=== PATIENT | female | born 1945 | race Caucasian/White ===

== ENCOUNTER 2016-08-17 17:04 | Inpatient (IN) | payer MEDICARE ==
[2016-08-17] MEDS ORDERED: NS 0.9% 1000 ML* 1,000 ML IV ONE (18:22)
--- NOTE | 2016-08-17 18:41 | RAD ---
INDICATION: Dizziness. COMPARISON: There are no prior studies available for comparison. TECHNIQUE: A portable view of the chest was obtained. FINDINGS: Cardiac and mediastinal contours appear to be within normal limits. The lungs are clear. No pleural effusion is seen. IMPRESSION: NO EVIDENCE FOR ACUTE DISEASE.
[2016-08-17 18:47] LABS: Hematocrit 43 % (35-47); Hemoglobin 14.5 g/dl (12.0-16.0); Mean Corpuscular HGB Conc 34 g/dl (31-36); Mean Corpuscular Hemoglobin 32 pg (27-31); Mean Corpuscular Volume 93 fL (80-97); Mean Platelet Volume 10 um3 (7.4-10.4); Red Blood Count 4.62 10^6/ul (4.0-5.4); Red Cell Distribution Width 14 % (10.5-15); White Blood Count 8.2 10^3/ul (3.5-10.8)
[2016-08-17 19:06] LABS: Albumin 3.8 g/dL (3.2-5.2); BUN/Creatinine Ratio 15.9 (8-20); Calcium 9.8 mg/dL (8.6-10.3); EGFR African American 88.6 (>60); EGFR Non-African American 68.9 (>60); Globulin 2.8 g/dL (2-4); Magnesium 1.9 mg/dL (1.9-2.7); Potassium 3.8 mmol/L (3.5-5.0); Total Bilirubin 0.6 mg/dL (0.2-1.0); Total Protein 6.6 g/dL (6.4-8.9)
[2016-08-17 19:10] LABS: Troponin I 0.05 ng/mL (<0.04)
--- NOTE | 2016-08-17 19:25 | ED ---
I, DoctorRenee, scribed for Rosalina Feliciano MD on 08/17/16 at 1837 . Dizziness - HPI Summary HPI Summary: 71 year old female arrived to [facility] c/o dizziness beginning this afternoon. She reports that this afternoon, she was unable to sit down and has had periodic waves of intermittent dizziness since. Pt describes the dizziness as feelings of lightheadedness and "like she was passing out," with no queasiness or spinning. She also indicates that during her episodes of dizziness, she feels heat/discomfort throughout her back/shoulders that resolves spontaneously. She denies any SOB or CP. She reports some cramping in the back of the left leg; does not have PMHx of blood clots (although she returned from a long trip to [place] 2 weeks ago). She had a similar episode of dizziness around 2.5 weeks earlier, and was admitted to the hospital for 2 days. She has a PMHx of hypothyroidism and migraines; no PMHx of DM, CAD, HTN. She lives with her and does not smoke; her PCP is Dr. Barbara Mart. - History Of Current Complaint Chief Complaint: EDDizziness Stated Complaint: DIZZY Time Seen by Provider: 08/17/16 18:21 Hx Obtained From: Patient Timing: Intermittent Episode Lasting Severity Initially: Moderate Severity Currently: Moderate Character: Lightheaded, Dizzy Alleviating Factor(s): Lying Down Associated Signs And Symptoms: Negative: Chest Pain, SOB - Allergies/Home Medications Allergies/Adverse Reactions: Allergies Allergy/AdvReac Type Severity Reaction Status Date / Time Codeine Allergy Severe Nausea Verified 09/17/12 13:04 Hydrocortisone Allergy Severe Rash Verified 09/17/12 13:04 [From Neomycin Sulfate/Hydrocortisone Connor] Neomycin Allergy Severe Rash Verified 09/17/12 13:04 [From Neomycin Sulfate/Hydrocortisone Connor] Sulfa Drugs Allergy Severe Hives Verified 09/17/12 13:04 PMH/Surg Hx/FS Hx/Imm Hx Endocrine/Hematology History: Reports: Hx Thyroid Disease Denies: Hx Diabetes Cardiovascular History: Denies: Hx Hypertension - Surgical History Surgery Procedure, Year, and Place: Appendectomy. Tonsilectomy. Oral Surgery age 36 Infectious Disease History: Denies: Traveled Outside the [place] in Last 30 Days - Family History Known Family History: Positive: Diabetes - Social History Lives: With Family - with Alcohol Use: Occasionally Substance Use Type: Reports: None Smoking Status (MU): Never Smoked Tobacco Review of Systems Negative: Fever Negative: Chest Pain Negative: Shortness Of Breath Negative: Nausea Positive: Myalgia - left calf cramping, Other - "heat" on back and shoulders Neurological: Other - dizziness & lightheadedness All Other Systems Reviewed And Are Negative: Yes Physical Exam Triage Information Reviewed: Yes Vital Signs On Initial Exam: Initial Vitals Temp Pulse Resp BP Pulse Ox 98.0 F 107 18 162/75 100 08/17/16 17:14 08/17/16 17:14 08/17/16 17:14 08/17/16 17:14 08/17/16 17:14 Vital Signs Reviewed: Yes Appearance: Positive: Well-Appearing, No Pain Distress Skin: Positive: Warm, Skin Color Reflects Adequate Perfusion, Dry Eyes: Positive: EOMI, DESTINY ENT: Positive: Pharynx normal, TMs normal Neck: Positive: Supple, Nontender Respiratory/Lung Sounds: Positive: Clear to Auscultation, Breath Sounds Present. Negative: Rales, Rhonchi, Wheezes Cardiovascular: Positive: RRR. Negative: Murmur, Rub Abdomen Description: Positive: Nontender, Soft. Negative: Distended, Guarding Bowel Sounds: Positive: Present Musculoskeletal: Positive: Strength/ROM Intact. Negative: Edema Left, Edema Right Neurological: Positive: Sensory/Motor Intact, Alert, Oriented to Person Place, Time, CN Intact II-III Psychiatric: Positive: Affect/Mood Appropriate Diagnostics - Vital Signs Vital Signs Temp Pulse Resp BP Pulse Ox 08/17/16 17:14 98.0 F 107 18 162/75 100 - Laboratory Lab Results: Lab Results 08/17/16 08/17/16 08/17/16 Range/Units 18:40 18:40 18:40 WBC 8.2 (3.5-10.8) 10^3/ul RBC 4.62 (4.0-5.4) 10^6/ul Hgb 14.5 (12.0-16.0) g/dl Hct 43 (35-47) % MCV 93 (80-97) fL MCH 32 H (27-31) pg MCHC 34 (31-36) g/dl RDW 14 (10.5-15) % Plt Count 175 (150-450) 10^3/ul MPV 10 (7.4-10.4) um3 Neut % (Auto) 59.3 (38-83) % Lymph % (Auto) 29.3 (25-47) % [place] % (Auto) 7.2 (1-9) % Eos % (Auto) 3.3 (0-6) % Baso % (Auto) 0.9 (0-2) % Absolute Neuts (auto) 4.9 (1.5-7.7) 10^3/ul Absolute Lymphs (auto) 2.4 (1.0-4.8) 10^3/ul Absolute Monos (auto) 0.6 (0-0.8) 10^3/ul Absolute Eos (auto) 0.3 (0-0.6) 10^3/ul Absolute Basos (auto) 0.1 (0-0.2) 10^3/ul Absolute Nucleated RBC 0 10^3/ul Nucleated RBC % 0 D-Dimer, Quantitative (Less Than 230) ng/mL Sodium 140 (133-145) mmol/L Potassium 3.8 (3.5-5.0) mmol/L Chloride 106 (101-111) mmol/L Carbon Dioxide 28 (22-32) mmol/L Anion Gap 6 (2-11) mmol/L BUN 13 (6-24) mg/dL Creatinine 0.82 (0.51-0.95) mg/dL Est GFR ( Amer) 88.6 (>60) Est GFR (Non-Af Amer) 68.9 (>60) BUN/Creatinine Ratio 15.9 (8-20) Glucose 91 (70-100) mg/dL Lactic Acid 1.1 (0.5-2.0) mmol/L Calcium 9.8 (8.6-10.3) mg/dL Magnesium 1.9 (1.9-2.7) mg/dL Total Bilirubin 0.60 (0.2-1.0) mg/dL AST 24 (13-39) U/L ALT 17 (7-52) U/L Alkaline Phosphatase 66 (34-104) U/L Troponin I 0.05 H* (<0.04) ng/mL Total Protein 6.6 (6.4-8.9) g/dL Albumin 3.8 (3.2-5.2) g/dL Globulin 2.8 (2-4) g/dL Albumin/Globulin Ratio 1.4 (1-3) TSH Pending 08/17/16 Range/Units 18:40 WBC (3.5-10.8) 10^3/ul RBC (4.0-5.4) 10^6/ul Hgb (12.0-16.0) g/dl Hct (35-47) % MCV (80-97) fL MCH (27-31) pg MCHC (31-36) g/dl RDW (10.5-15) % Plt Count (150-450) 10^3/ul MPV (7.4-10.4) um3 Neut % (Auto) (38-83) % Lymph % (Auto) (25-47) % [place] % (Auto) (1-9) % Eos % (Auto) (0-6) % Baso % (Auto) (0-2) % Absolute Neuts (auto) (1.5-7.7) 10^3/ul Absolute Lymphs (auto) (1.0-4.8) 10^3/ul Absolute Monos (auto) (0-0.8) 10^3/ul Absolute Eos (auto) (0-0.6) 10^3/ul Absolute Basos (auto) (0-0.2) 10^3/ul Absolute Nucleated RBC 10^3/ul Nucleated RBC % D-Dimer, Quantitative < 200 (Less Than 230) ng/mL Sodium (133-145) mmol/L Potassium (3.5-5.0) mmol/L Chloride (101-111) mmol/L Carbon Dioxide (22-32) mmol/L Anion Gap (2-11) mmol/L BUN (6-24) mg/dL Creatinine (0.51-0.95) mg/dL Est GFR ( Amer) (>60) Est GFR (Non-Af Amer) (>60) BUN/Creatinine Ratio (8-20) Glucose (70-100) mg/dL Lactic Acid (0.5-2.0) mmol/L Calcium (8.6-10.3) mg/dL Magnesium (1.9-2.7) mg/dL Total Bilirubin (0.2-1.0) mg/dL AST (13-39) U/L ALT (7-52) U/L Alkaline Phosphatase (34-104) U/L Troponin I (<0.04) ng/mL Total Protein (6.4-8.9) g/dL Albumin (3.2-5.2) g/dL Globulin (2-4) g/dL Albumin/Globulin Ratio (1-3) TSH Result Diagrams: 08/17/16 18:40 08/17/16 18:40 Lab Statement: Any lab studies that have been ordered have been reviewed, and results considered in the medical decision making process. - EKG 17:25 Cardiac Rate: NL EKG Rhythm: Sinus Rhythm Ectopy: None EKG Interpretation: LBBB 18:46 Cardiac Rate: NL - 73 bpm EKG Rhythm: Sinus Rhythm Ectopy: None EKG Interpretation: LBBB with AFib Dizzy Course/Dx - Course Course Of Treatment: 71 yo female with recent hx of lightheadedness several weeks ago in [place]. she was noted to have a left bundle branch block and was kept in the hospital for a few days, she has been having the same lightheadedness today since 1:30 pm on and off. She has not noticed palpitations or cp in the room she has an intermittent afib. Dr. Salas has accepted the pt for the hospitalist service - Diagnoses Provider Diagnoses: Atrial fibrillation Discharge - Discharge Plan Condition: Stable Disposition: ADMITTED TO [facility] Referrals: Barron Jimenez MD [Primary Care Provider] - The documentation as recorded by the Doctor hooks Tahera accurately reflects the service I personally performed and the decisions made by me, Rosalina Feliciano MD.
[2016-08-17 19:33] LABS: TSH (Thyroid Stimulating Horm) 1.85 mcIU/mL (0.34-5.60)
[2016-08-17] MEDS ORDERED: Diltiazem IV VIAL* 125 MG in D5W 100 ML BAG* 100 ML IV ONE (19:48)
--- NOTE | 2016-08-17 19:51 | ED ---
I, Renee Almaraz, scribed for Rosalina Feliciano MD on 08/17/16 at 1943 . Progress - Progress Note Progress Note: Consult with Dr. Keita at 19:37 - agrees to admit pt. Re-Eval at 19:42 - Discussed lab results of AFib and treatment plan - EKG/XRAY/CT XRAY: chest - Radiologist - IMPRESSION: NO EVIDENCE FOR ACUTE DISEASE. Course/Dx - Course Course Of Treatment: 71 yo female with recent hx of lightheadedness several weeks ago in [place]. she was noted to have a left bundle branch block and was kept in the hospital for a few days, she has been having the same lightheadedness today since 1:30 pm on and off. She has not noticed palpitations or cp in the room she has an intermittent afib. Dr. Salas has accepted the pt for the hospitalist service - Diagnoses Provider Diagnoses: Atrial fibrillation The documentation as recorded by the soloibe, Renee Almaraz accurately reflects the service I personally performed and the decisions made by me, Rosalina Feliciano MD.
--- NOTE | 2016-08-17 19:52 | HP ---
H&P (Free Text) History and Physical: PCP: Regan Jimenez MD Cardiology: Breann Mcqueen MD Date/Time of Evaluation: 08/17/2016 193 CC: light-headedness, palpitations HPI: Mrs Mcguire (pronounced Dugger) is a 71YO female HX HLD & hypothyroidism who presents with rapid onset of light-headedness without spinning sensation or motion artifact around noon today. She took her blood pressure at home finding her pulse to be in the 140s. The symptoms persisted waxing and waning in waves and associated with flushing/warmth sensation across her shoulder blades prompting her to present to [facility] ED for evaluation. She has been having LLE cramping, but denies chest pain, SOB, N/V, or other associations. She reports having a similar episode a few weeks ago while out of town differing mainly in that it progressed to syncope for which she was admitted, but reports nothing was found. She followed up from that hospitalization with Breann Mcqueen MD cardiology ~1 week ago who D/C'd her propranolol used for migraine prophylaxis and set up for an event monitor which has yet to be performed. Evaluation reveals AFIB/RVR with baseline LBBB on ECG, vitals otherwise stable. Labs are notable only for a troponin of 0.05, likely 2nd demand ischemia. CXR is negative. PMedHx HLD hypothyroidism migraines Allergies Codeine Allergy (Severe, Verified 09/17/12 13:04) Nausea Hydrocortisone [From Neomycin Sulfate/Hydrocortisone Connor] Allergy (Severe, Verified 09/17/12 13:04) Rash Neomycin [From Neomycin Sulfate/Hydrocortisone Connor] Allergy (Severe, Verified 13:04) Rash Sulfa Drugs Allergy (Severe, Verified 09/17/12 13:04) Hives Ambulatory Orders Nursing to reconcile. Atorvastatin* [Lipitor*] 10 mg PO DAILY 09/17/12 Calcium Carbonate-Vitamin D W/ [Calcium 1200] 1 chw PO DAILY 09/17/12 Fluticasone Cream 1 applic TOPICAL DAILY PRN 09/17/12 Levothyroxine TAB* [Synthroid 75 MCG TAB*] 75 mcg PO DAILY 09/17/12 Mometasone NASAL (NF) [Nasonex (NF)] 50 mcg BOTH NARES BID 09/17/12 Multiple Vitamin [Multivitamins] 1 cap PO DAILY 09/17/12 Propranolol TAB* [Inderal TAB*] 80 mg PO DAILY 09/17/12 PSurgHx tonsillectomy R wrist procedure for arthritis appendectomy SocHx: no smoking HX, 1-2 glasses white wine daily, no recreational drugs, 12oz caffeinated beverage daily; lives with her ; retired educator; full code status FamHx: Mother: CHF; Father: passed of [place] at age 54; otherwise positive for essential tremor & Parkinsonism ROS: as above, otherwise reviewed and all were negative Constitutional: NAD, normally developed, well-nourished white female vitals: Vital Signs Temp 36.6 C 08/17/16 18:25 Pulse 69 08/17/16 19:00 Resp 16 08/17/16 18:25 BP 134/71 08/17/16 19:00 Pulse Ox 99 08/17/16 19:00 Intake & Output 08/16/16 08/17/16 08/17/16 23:59 11:59 23:59 Weight 54.431 kg HEENM: atraumatic; sclera/conjunctiva: non-icteric/clear; hearing: clinically intact; oropharynx: clear, mucosa moist Neck: soft tissue: non-tender, no mass; thyroid: normal Pulmonary: clear to auscultation bilaterally, good aeration, no accessory muscle use CV: RR/RR, normal S1S2, no carotid bruit, no jugular venous distention, 2+ B DP/ PT, no edema Abdominal: soft, non-distended, non-tender, no rebound/guarding/rigidity, normoactive bowel sounds, no hepatosplenomegaly or masses, no costovertebral angle tenderness Musculoskeletal: general: grossly intact; gait: stable Integumental: normal Psychiatric orientation: AA&O to PPS affect: calm mood: cooperative eye contact: good content: reliable responses: timely insight: good Testing: Lab Results 08/17/16 08/17/16 08/17/16 Range/Units 18:40 18:40 18:40 WBC 8.2 (3.5-10.8) 10^3/ul RBC 4.62 (4.0-5.4) 10^6/ul Hgb 14.5 (12.0-16.0) g/dl Hct 43 (35-47) % MCV 93 (80-97) fL MCH 32 H (27-31) pg MCHC 34 (31-36) g/dl RDW 14 (10.5-15) % Plt Count 175 (150-450) 10^3/ul MPV 10 (7.4-10.4) um3 Neut % (Auto) 59.3 (38-83) % Lymph % (Auto) 29.3 (25-47) % [place] % (Auto) 7.2 (1-9) % Eos % (Auto) 3.3 (0-6) % Baso % (Auto) 0.9 (0-2) % Absolute Neuts (auto) 4.9 (1.5-7.7) 10^3/ul Absolute Lymphs (auto) 2.4 (1.0-4.8) 10^3/ul Absolute Monos (auto) 0.6 (0-0.8) 10^3/ul Absolute Eos (auto) 0.3 (0-0.6) 10^3/ul Absolute Basos (auto) 0.1 (0-0.2) 10^3/ul Absolute Nucleated RBC 0 10^3/ul Nucleated RBC % 0 D-Dimer, Quantitative (Less Than 230) ng/mL Sodium 140 (133-145) mmol/L Potassium 3.8 (3.5-5.0) mmol/L Chloride 106 (101-111) mmol/L Carbon Dioxide 28 (22-32) mmol/L Anion Gap 6 (2-11) mmol/L BUN 13 (6-24) mg/dL Creatinine 0.82 (0.51-0.95) mg/dL Est GFR ( Amer) 88.6 (>60) Est GFR (Non-Af Amer) 68.9 (>60) BUN/Creatinine Ratio 15.9 (8-20) Glucose 91 (70-100) mg/dL Lactic Acid 1.1 (0.5-2.0) mmol/L Calcium 9.8 (8.6-10.3) mg/dL Magnesium 1.9 (1.9-2.7) mg/dL Total Bilirubin 0.60 (0.2-1.0) mg/dL AST 24 (13-39) U/L ALT 17 (7-52) U/L Alkaline Phosphatase 66 (34-104) U/L Troponin I 0.05 H* (<0.04) ng/mL Total Protein 6.6 (6.4-8.9) g/dL Albumin 3.8 (3.2-5.2) g/dL Globulin 2.8 (2-4) g/dL Albumin/Globulin Ratio 1.4 (1-3) TSH 1.85 (0.34-5.60) mcIU/mL 08/17/16 Range/Units 18:40 WBC (3.5-10.8) 10^3/ul RBC (4.0-5.4) 10^6/ul Hgb (12.0-16.0) g/dl Hct (35-47) % MCV (80-97) fL MCH (27-31) pg MCHC (31-36) g/dl RDW (10.5-15) % Plt Count (150-450) 10^3/ul MPV (7.4-10.4) um3 Neut % (Auto) (38-83) % Lymph % (Auto) (25-47) % [place] % (Auto) (1-9) % Eos % (Auto) (0-6) % Baso % (Auto) (0-2) % Absolute Neuts (auto) (1.5-7.7) 10^3/ul Absolute Lymphs (auto) (1.0-4.8) 10^3/ul Absolute Monos (auto) (0-0.8) 10^3/ul Absolute Eos (auto) (0-0.6) 10^3/ul Absolute Basos (auto) (0-0.2) 10^3/ul Absolute Nucleated RBC 10^3/ul Nucleated RBC % D-Dimer, Quantitative < 200 (Less Than 230) ng/mL Sodium (133-145) mmol/L Potassium (3.5-5.0) mmol/L Chloride (101-111) mmol/L Carbon Dioxide (22-32) mmol/L Anion Gap (2-11) mmol/L BUN (6-24) mg/dL Creatinine (0.51-0.95) mg/dL Est GFR ( Amer) (>60) Est GFR (Non-Af Amer) (>60) BUN/Creatinine Ratio (8-20) Glucose (70-100) mg/dL Lactic Acid (0.5-2.0) mmol/L Calcium (8.6-10.3) mg/dL Magnesium (1.9-2.7) mg/dL Total Bilirubin (0.2-1.0) mg/dL AST (13-39) U/L ALT (7-52) U/L Alkaline Phosphatase (34-104) U/L Troponin I (<0.04) ng/mL Total Protein (6.4-8.9) g/dL Albumin (3.2-5.2) g/dL Globulin (2-4) g/dL Albumin/Globulin Ratio (1-3) TSH (0.34-5.60) mcIU/mL ECG, personally reviewed: AFIB w/ baseline LBBB rate 172 CXR, personally reviewed: IMPRESSION: NO EVIDENCE FOR ACUTE DISEASE. Impression: 71F presenting with new finding of AFIB/RVR DIAGNOSIS & PLAN Primary AFIB/RVR : rate control : heparin GTT : [id number] score zero : supplemental oxygen : consider consulting cardiology in AM : TSH 1.85 : supportive care Secondary HLD : continue atorvastatin once reconciled hypothyroidism : continue levothyroxine once reconciled migraines : no acute issues Admission Rational: CDU observation for AFIB/RVR DVTp: heparin GTT Code Status: full HCP:
[2016-08-17] MEDS ORDERED: Diltiazem IV VIAL* 125 MG/25 ML VIAL ONE (20:07)
[2016-08-17] MEDS ORDERED: Ondansetron INJ* 2 MG/ML VIAL IV PRN (20:59)
[2016-08-17] MEDS ORDERED: CMCS - Melatonin (NF) 3 MG TAB PO PRN (20:59)
[2016-08-17] MEDS ORDERED: Acetaminophen TAB* 325 MG PO PRN (20:59)
[2016-08-17] MEDS ORDERED: Heparin DRIP 25,000 UNITS(*) 25,000 UNITS/500 ML BAG IVPB SCH (21:00)
[2016-08-17] MEDS ORDERED: Heparin VIAL(*) 5000 UNITS/ML VIAL (FIVE THOUSAND) SUBCUT PRN (21:17)
--- NOTE | 2016-08-17 21:33 | RAD ---
INDICATION: Left calf pain. COMPARISON: There are no prior studies available for comparison. TECHNIQUE: Multiple real-time, color flow and Doppler tracings of the left lower extremity were obtained. FINDINGS: The common femoral, femoral, profunda femoral and popliteal veins all demonstrate normal compressibility, augmentation with compression and phasic response with respiration. The posterior tibial and peroneal veins demonstrate normal compressibility and augmentation with compression. IMPRESSION: NO EVIDENCE FOR DEEP VENOUS THROMBOSIS.
[2016-08-17 21:36] LABS: Urine Bilirubin Negative (Negative); Urine Glucose Negative (Negative); Urine Nitrite Negative (Negative)
[2016-08-17] MEDS: NS 0.9% 1000 ML* 1,000 ML IV SCH (22:59)
[2016-08-17] MEDS ORDERED: Heparin VIAL(*) 5000 UNITS/ML VIAL (FIVE THOUSAND) IV PRN (23:01)
[2016-08-17] MEDS: Docusate CAP* 100 MG PO SCH (23:33)
[2016-08-18] MEDS ORDERED: Diltiazem IV VIAL* 125 MG in D5W 100 ML BAG* 100 ML IV SCH (03:00)
[2016-08-18] MEDS: Omeprazole CAP* 20 MG PO SCH (05:45)
[2016-08-18] MEDS: Docusate CAP* 100 MG PO SCH (06:59)
[2016-08-18] MEDS: NS 0.9% 1000 ML* 1,000 ML IV SCH (07:45)
[2016-08-18 09:12] LABS: BUN/Creatinine Ratio 12.1 (8-20); Calcium 8.6 mg/dL (8.6-10.3); EGFR African American 132.2 (>60); EGFR Non-African American 102.8 (>60)
[2016-08-18 09:14] LABS: Troponin I 0.01 ng/mL (<0.04)
--- NOTE | 2016-08-18 12:15 | ECHO ---
Patient: RENY SAHNI [facility] Rec#: [id number] : 1945 Date: 08/18/2016 Age: 71y Height: 165.1 cm / 65.0 in Weight: 53.98 kg / 119.0 lbs Sex: F BSA: 1.59 Room#: [facility] Admit Date#: 08/17/2016 Type: Inpatient Referring: Jaquelin Kilpatrick DO Reading: David An MD Structural Fitter: Tammy Vallejo SHAHID CC: Barron Jimenez MD CC: Stan Mcqueen DO Transthoracic Echocardiogram Indication: New A-fib BP: 114/49 HR: 63 Rhythm: NSR Findings History: HLD,hypothyroid, recent syncope while in [place]. Admitted with new A-fib. Technical Comments: The study quality is fair. Completed at 1150. Left Ventricle: The left ventricular chamber size is normal. Mild to moderate concentric left ventricular hypertrophy is observed. Mild global hypokinesis of the left ventricle is observed. There is mildly decreased left ventricular systolic function. The estimated ejection fraction is 45-50%. Visually estimated LVEF is closer to 50 %. There is no consistent Doppler evidence of clinically significant diastolic dysfunction. Left Atrium: The left atrial chamber size is normal. Right Ventricle: The right ventricular cavity size is normal. The right ventricular global systolic function is normal. Right Atrium: The right atrial cavity size is normal. Aortic Valve: The aortic valve is trileaflet. There is a trace of aortic regurgitation. There is no evidence of aortic stenosis. Mitral Valve: The mitral valve leaflets are mildly thickened. There is prolapse of the anterior leaflet of the mitral valve. The degree of prolapse appears mild at most. There is trace to mild mitral regurgitation. There is no evidence of mitral stenosis. Tricuspid Valve: The tricuspid valve leaflets are normal. There is trace to mild tricuspid regurgitation. There is evidence of mild pulmonary hypertension. There is no tricuspid stenosis. Pulmonic Valve: The pulmonic valve appears normal. There is no evidence of pulmonic regurgitation. There is no pulmonic stenosis. Pericardium: The pericardium appears normal. Aorta: There is no dilatation of the ascending aorta. There is no dilatation of the aortic arch. There is no dilation of the aortic root. Pulmonary Artery: The main pulmonary artery appears normal. Venous: The inferior vena cava is dilated. There is a greater than 50% respiratory change in the inferior vena cava dimension. Conclusions Mild global hypokinesis of the left ventricle is observed. The estimated ejection fraction is 45-50%. Visually estimated LVEF is closer to 50 %. There is a trace of aortic regurgitation. There is mild prolapse of the anterior leaflet of the mitral valve There is trace to mild mitral regurgitation. There is trace to mild tricuspid regurgitation. Compared to report of study from 07/27/2016 LVEF is lower (was reported as 55-65%). The degree of TR and MR is slightly less (both were reported as mild). Measurements Name Value Normal Range RVIDd (AP) 2D 2 cm (0.9 - 2.6) RVDdMajor (2D) 2.8 cm (2.2 - 4.4) RAd ISD 4CH 3.9 cm (3.4 - 4.9) RA (A4C)W 3.1 cm (2.9 - 4.6) IVSd (2D) 1.1 cm (0.6 - 1) LVPWd (2D) 1.3 cm (0.6 - 1) LVIDd (2D) 4.2 cm (3.6 - 5.4) LVIDs (2D) 3.3 cm - LV FS (2D) 21 % (25 - 45) Aortic Annulus 1.6 cm (1.4 - 2.6) Ao root diameter (2D) 3.2 cm (2.1 - 3.5) Ascending Ao 2.9 cm (2.1 - 3.4) Aortic arch 2.2 cm (1.8 - 3.4) Descending Ao 0.8 cm - LA dimension (AP) 2D 2.4 cm (2.3 - 3.8) LAd ISD 4CH 3.5 cm (2.9 - 5.3) LA ISD 4CH W 3.8 cm (2.5 - 4.5) Name Value Normal Range LA ESV SP 4CH (A/L) 25 ml - LA ESV SP 2CH (A/L) 20 ml - LA ESV BP (A/L) 24 ml - LA ESV BP (A/L) index 15.3 ml/m2 - LA ESV SP 4CH (MOD) 23 ml - LA ESV SP 2CH (MOD) 16 ml - Name Value Normal Range MV E-wave Vmax 0.7 m/sec - MV deceleration time 189 msec - MV A-wave Vmax 0.7 m/sec - MV E:A ratio 1.01 ratio - LV septal e' Vmax 0.04 m/sec - LV lateral e' Vmax 0.05 m/sec - LV E:e' septal ratio 17.5 ratio - LV E:e' lateral ratio 14 ratio - Name Value Normal Range AV Vmax 1.2 m/sec - AV VTI 25.6 cm - AV peak gradient 5.76 mmHg - AV mean gradient 3.12 mmHg - LVOT Vmax 0.7 m/sec - LVOT VTI 16.4 cm - LVOT peak gradient 2.13 mmHg - LVOT mean gradient 1.24 mmHg - Name Value Normal Range TR Vmax 2.7 m/sec - TR peak gradient 29 mmHg - RAP 8 mmHg - RVSP 37 mmHg - IVC diameter 2.4 cm - Name Value Normal Range PV Vmax 0.8 m/sec - PV peak gradient 2.68 mmHg -
[2016-08-18] MEDS ORDERED: Docusate CAP* 100 MG PO PRN (13:02)
--- NOTE | 2016-08-18 13:14 | PN ---
Subjective Date of Service: 08/18/16 Interval History: Pt is feeling well currently. She denies any pain or SOB. She is agreeable to staying overnight for stress test tomorrow. Objective Active Medications: Acetaminophen (Tylenol Tab*) 650 mg PO Q6H PRN PRN Reason: FEVER/PAIN Last Admin: 08/18/16 10:17 Dose: 650 mg Apixaban (Eliquis*) 5 mg PO BID DEYVI Docusate Sodium (Colace Cap*) 200 mg PO BID PRN PRN Reason: CONSTIPATION Melatonin (Melatonin (Nf)) 3 mg PO BEDTIME PRN; Protocol PRN Reason: Sleep Metoprolol Tartrate (Lopressor Tab*) 12.5 mg PO Q12HR DEYVI Omeprazole (Prilosec Cap*) 20 mg PO DAILY@0600 [facility] Last Admin: 08/18/16 05:45 Dose: 20 mg Ondansetron HCl (Zofran Inj*) 4 mg IV Q6H PRN PRN Reason: NAUSEA Vital Signs 08/17/16 08/17/16 08/17/16 19:00 19:30 20:00 Temperature Pulse Rate 69 69 56 Respiratory Rate Blood Pressure 134/71 124/103 138/62 (mmHg) O2 Sat by Pulse 99 100 99 Oximetry 08/17/16 08/17/16 08/17/16 20:30 20:45 21:00 Temperature Pulse Rate 72 86 85 Respiratory Rate Blood Pressure 125/64 116/88 121/73 (mmHg) O2 Sat by Pulse 97 97 96 Oximetry 08/17/16 08/17/16 08/17/16 21:03 21:15 21:30 Temperature 99.0 F Pulse Rate 92 81 Respiratory Rate Blood Pressure 135/67 118/74 (mmHg) O2 Sat by Pulse 97 96 Oximetry 08/17/16 08/17/16 08/17/16 21:43 21:45 21:50 Temperature Pulse Rate 88 76 Respiratory 17 Rate Blood Pressure 118/67 (mmHg) O2 Sat by Pulse 97 97 Oximetry 08/17/16 08/17/16 08/17/16 21:51 22:04 22:05 Temperature Pulse Rate Respiratory 13 14 Rate Blood Pressure 123/69 146/97 (mmHg) O2 Sat by Pulse Oximetry 08/17/16 08/17/16 08/17/16 22:09 22:15 22:30 Temperature 97.7 F Pulse Rate 77 68 69 Respiratory 16 13 16 Rate Blood Pressure 137/74 125/72 128/61 (mmHg) O2 Sat by Pulse 99 97 97 Oximetry 08/17/16 08/17/16 08/17/16 22:45 23:00 23:30 Temperature Pulse Rate 66 66 78 Respiratory 16 17 22 Rate Blood Pressure 127/60 119/53 93/52 (mmHg) O2 Sat by Pulse 97 97 97 Oximetry 08/17/16 08/17/16 08/18/16 23:45 23:46 00:00 Temperature Pulse Rate 65 67 70 Respiratory 15 14 20 Rate Blood Pressure 119/49 115/48 (mmHg) O2 Sat by Pulse 100 100 100 Oximetry 08/18/16 08/18/16 08/18/16 01:00 02:00 02:58 Temperature Pulse Rate 68 64 65 Respiratory 15 15 15 Rate Blood Pressure 115/58 107/52 109/58 (mmHg) O2 Sat by Pulse 99 99 99 Oximetry 08/18/16 08/18/16 08/18/16 03:00 04:00 05:00 Temperature Pulse Rate 66 60 60 Respiratory 17 14 15 Rate Blood Pressure 116/57 122/57 121/53 (mmHg) O2 Sat by Pulse 99 99 100 Oximetry 08/18/16 08/18/16 08/18/16 06:00 07:00 07:43 Temperature 97.7 F Pulse Rate 72 64 Respiratory 14 17 18 Rate Blood Pressure 116/45 105/77 (mmHg) O2 Sat by Pulse 100 97 Oximetry 08/18/16 08/18/16 08/18/16 08:00 09:00 09:52 Temperature Pulse Rate 62 73 Respiratory 21 19 Rate Blood Pressure 120/51 114/49 (mmHg) O2 Sat by Pulse 98 98 99 Oximetry 08/18/16 08/18/16 08/18/16 10:00 11:00 11:22 Temperature Pulse Rate 68 60 Respiratory 15 16 15 Rate Blood Pressure 119/55 101/55 (mmHg) O2 Sat by Pulse 98 97 Oximetry 08/18/16 08/18/16 08/18/16 11:23 11:32 11:48 Temperature 98.1 F Pulse Rate Respiratory 18 Rate Blood Pressure 89/27 102/60 (mmHg) O2 Sat by Pulse Oximetry 08/18/16 12:00 Temperature Pulse Rate Respiratory 17 Rate Blood Pressure (mmHg) O2 Sat by Pulse Oximetry Oxygen Devices in Use Now: None Appearance: Elderly female sitting up in bed, NAD Eyes: No Scleral Icterus Ears/Nose/Mouth/Throat: Mucous Membranes Moist Respiratory: Symmetrical Chest Expansion and Respiratory Effort, Clear to Auscultation Cardiovascular: NL Sounds; No Murmurs; No JVD, RRR, No Edema Abdominal: NL Sounds; No Tenderness; No Distention Extremities: No Clubbing, Cyanosis Skin: No Rash or Ulcers, No Nodules or Sclerosis Neurological: Alert and Oriented x 3 Result Diagrams: 08/17/16 18:40 08/18/16 07:58 Additional Lab and Data: Lab Results 08/17/16 08/17/16 08/17/16 Range/Units 18:40 18:40 18:40 WBC 8.2 (3.5-10.8) 10^3/ul RBC 4.62 (4.0-5.4) 10^6/ul Hgb 14.5 (12.0-16.0) g/dl Hct 43 (35-47) % MCV 93 (80-97) fL MCH 32 H (27-31) pg MCHC 34 (31-36) g/dl RDW 14 (10.5-15) % Plt Count 175 (150-450) 10^3/ul MPV 10 (7.4-10.4) um3 Neut % (Auto) 59.3 (38-83) % Lymph % (Auto) 29.3 (25-47) % [place] % (Auto) 7.2 (1-9) % Eos % (Auto) 3.3 (0-6) % Baso % (Auto) 0.9 (0-2) % Absolute Neuts (auto) 4.9 (1.5-7.7) 10^3/ul Absolute Lymphs (auto) 2.4 (1.0-4.8) 10^3/ul Absolute Monos (auto) 0.6 (0-0.8) 10^3/ul Absolute Eos (auto) 0.3 (0-0.6) 10^3/ul Absolute Basos (auto) 0.1 (0-0.2) 10^3/ul Absolute Nucleated RBC 0 10^3/ul Nucleated RBC % 0 D-Dimer, Quantitative (Less Than 230) ng/mL Sodium 140 (133-145) mmol/L Potassium 3.8 (3.5-5.0) mmol/L Chloride 106 (101-111) mmol/L Carbon Dioxide 28 (22-32) mmol/L Anion Gap 6 (2-11) mmol/L BUN 13 (6-24) mg/dL Creatinine 0.82 (0.51-0.95) mg/dL Est GFR ( Amer) 88.6 (>60) Est GFR (Non-Af Amer) 68.9 (>60) BUN/Creatinine Ratio 15.9 (8-20) Glucose 91 (70-100) mg/dL Lactic Acid 1.1 (0.5-2.0) mmol/L Calcium 9.8 (8.6-10.3) mg/dL Magnesium 1.9 (1.9-2.7) mg/dL Total Bilirubin 0.60 (0.2-1.0) mg/dL AST 24 (13-39) U/L ALT 17 (7-52) U/L Alkaline Phosphatase 66 (34-104) U/L Troponin I 0.05 H* (<0.04) ng/mL Total Protein 6.6 (6.4-8.9) g/dL Albumin 3.8 (3.2-5.2) g/dL Globulin 2.8 (2-4) g/dL Albumin/Globulin Ratio 1.4 (1-3) TSH Pending 08/17/16 Range/Units 18:40 WBC (3.5-10.8) 10^3/ul RBC (4.0-5.4) 10^6/ul Hgb (12.0-16.0) g/dl Hct (35-47) % MCV (80-97) fL MCH (27-31) pg MCHC (31-36) g/dl RDW (10.5-15) % Plt Count (150-450) 10^3/ul MPV (7.4-10.4) um3 Neut % (Auto) (38-83) % Lymph % (Auto) (25-47) % [place] % (Auto) (1-9) % Eos % (Auto) (0-6) % Baso % (Auto) (0-2) % Absolute Neuts (auto) (1.5-7.7) 10^3/ul Absolute Lymphs (auto) (1.0-4.8) 10^3/ul Absolute Monos (auto) (0-0.8) 10^3/ul Absolute Eos (auto) (0-0.6) 10^3/ul Absolute Basos (auto) (0-0.2) 10^3/ul Absolute Nucleated RBC 10^3/ul Nucleated RBC % D-Dimer, Quantitative < 200 (Less Than 230) ng/mL Sodium (133-145) mmol/L Potassium (3.5-5.0) mmol/L Chloride (101-111) mmol/L Carbon Dioxide (22-32) mmol/L Anion Gap (2-11) mmol/L BUN (6-24) mg/dL Creatinine (0.51-0.95) mg/dL Est GFR ( Amer) (>60) Est GFR (Non-Af Amer) (>60) BUN/Creatinine Ratio (8-20) Glucose (70-100) mg/dL Lactic Acid (0.5-2.0) mmol/L Calcium (8.6-10.3) mg/dL Magnesium (1.9-2.7) mg/dL Total Bilirubin (0.2-1.0) mg/dL AST (13-39) U/L ALT (7-52) U/L Alkaline Phosphatase (34-104) U/L Troponin I (<0.04) ng/mL Total Protein (6.4-8.9) g/dL Albumin (3.2-5.2) g/dL Globulin (2-4) g/dL Albumin/Globulin Ratio (1-3) TSH Assess/Plan/Problems-Billing Ms Mcguire is a 71 yo F who has a h/o a recent syncopal episode where no clear cause was identified, HLD and hypothyroidism who presented to the ER with c/o lightheadedness and was found to be in rapid afib. - Patient Problems (1) Atrial fibrillation with RVR Current Visit: Yes Status: Acute Code(s): I48.91 - UNSPECIFIED ATRIAL FIBRILLATION SNOMED Code(s): 019208441782391 Comment: The patient converted back to NSR spontaneously overnight. The diltiazem drip was discontinued. Will start low dose metoprolol tartrate 12.5mg BID. We discussed at length the risks and benefits of anticoagulation and she agrees to start. We discussed coumadin vs eliqus/xarelto/pradaxa. After reviewing the risks and benefits of both options she agreed to eliquis. Will start this tonight as she has a CHADs Vasc Score of 2. Echo shows her EF to be low normal with the LV being hypokinetic. As she had a mild troponin elevation on admission will plan on getting a stress test prior to d/c home. I believe the elevated troponin was secondary to demand ischemia. (2) Hypothyroid Current Visit: Yes Status: Acute Code(s): E03.9 - HYPOTHYROIDISM, UNSPECIFIED SNOMED Code(s): 11813803 Comment: TSH in the appropriate range. Continue current dose of synthroid. (3) HLD (hyperlipidemia) Current Visit: Yes Status: Acute Code(s): E78.5 - HYPERLIPIDEMIA, UNSPECIFIED SNOMED Code(s): 01359073 Comment: Continue lipitor (4) DVT prophylaxis Current Visit: Yes Status: Acute Code(s): ATB6899 - SNOMED Code(s): 233305790 Comment: start eliquis tonight (5) Full code status Current Visit: Yes Status: Acute Code(s): Z78.9 - OTHER SPECIFIED HEALTH STATUS SNOMED Code(s): 197370533
[2016-08-18] MEDS: Apixaban* 5 MG TAB PO SCH (20:28)
[2016-08-18] MEDS: Metoprolol Tartrate TAB* 25 MG PO SCH (20:28)
[2016-08-19] MEDS: Omeprazole CAP* 20 MG PO SCH (05:08)
[2016-08-19] MEDS ORDERED: Levothyroxine TAB* 75 MCG TAB PO SCH (06:00)
[2016-08-19] MEDS ORDERED: Aminophylline IV* 25 MG/ML 10 ML VIAL ONE (08:24)
[2016-08-19] MEDS ORDERED: Regadenoson* 0.4 MG/5 ML SYRINGE ONE (08:24)
[2016-08-19] MEDS ORDERED: Atorvastatin* 10 MG TAB PO SCH (09:00)
[2016-08-19 10:31] VITALS: BP 137/59
--- NOTE | 2016-08-19 10:36 | RAD ---
INDICATION: Chest pain. Left bundle branch block COMPARISON: None TECHNIQUE: A single day SPECT protocol was utilized. Rest images were acquired following the intravenous injection of 10.8 millicuries of technetium 99m tetrofosmin. Pharmacologic stress images were acquired following the intravenous administration of 25.7 millicuries of technetium 99m tetrofosmin. FINDINGS: There are no defects of the stress-induced or fixed nature. The cardiac chamber size is normal. There are no wall motion abnormalities. The ejection fraction is calculated at 61% percent during stress. IMPRESSION: NO DEFECTS OR STRESS-INDUCED OR FIXED NATURE ASSESSMENT: LOW-RISK Based on imaging criteria from ACC/AHA 2002 Guideline Update for the Management of Patients With Chronic Stable Angina Table 23. Noninvasive Risk Stratification.
[2016-08-19] MEDS: Metoprolol Tartrate TAB* 25 MG PO SCH (11:24)
[2016-08-19] MEDS: Apixaban* 5 MG TAB PO SCH (11:24)
--- NOTE | 2016-08-19 12:23 | PN ---
Subjective Date of Service: 08/19/16 Interval History: Pt is feeling well. No chest pain or SOB. No further lightheadedness. Objective Active Medications: Acetaminophen (Tylenol Tab*) 650 mg PO Q6H PRN PRN Reason: FEVER/PAIN Last Admin: 08/18/16 10:17 Dose: 650 mg Apixaban (Eliquis*) [address] [facility] Last Admin: 08/19/16 11:24 Dose: 5 mg Atorvastatin Calcium (Lipitor*) [address] [facility] Last Admin: 08/19/16 11:24 Dose: 10 mg Docusate Sodium (Colace Cap*) 200 mg PO BID PRN PRN Reason: CONSTIPATION Levothyroxine Sodium (Synthroid Tab*) 75 mcg PO DAILY@0600 [facility] Last Admin: 08/19/16 05:08 Dose: 75 mcg Melatonin (Melatonin (Nf)) 3 mg PO BEDTIME PRN; Protocol PRN Reason: Sleep Metoprolol Tartrate (Lopressor Tab*) 12.[address] [facility] Last Admin: 08/19/16 11:24 Dose: 12.5 mg Omeprazole (Prilosec Cap*) 20 mg PO DAILY@0600 [facility] Last Admin: 08/19/16 05:08 Dose: 20 mg Ondansetron HCl (Zofran Inj*) 4 mg IV Q6H PRN PRN Reason: NAUSEA Vital Signs 08/18/16 08/18/16 08/18/16 13:00 15:56 17:26 Temperature 97.8 F Pulse Rate 64 Respiratory 24 18 Rate Blood Pressure 138/67 (mmHg) O2 Sat by Pulse 99 99 Oximetry 08/18/16 08/18/16 08/18/16 20:00 20:15 23:32 Temperature 98.2 F 97.7 F Pulse Rate 66 61 Respiratory 16 18 16 Rate Blood Pressure 125/68 126/67 (mmHg) O2 Sat by Pulse 98 99 Oximetry 08/19/16 08/19/16 08/19/16 03:58 06:30 10:31 Temperature 97.7 F 97.8 F Pulse Rate 67 78 Respiratory 16 15 16 Rate Blood Pressure 146/74 137/59 (mmHg) O2 Sat by Pulse 99 97 Oximetry Oxygen Devices in Use Now: None Appearance: Elderly female sitting up in bed, NAD Eyes: No Scleral Icterus Ears/Nose/Mouth/Throat: Mucous Membranes Moist Respiratory: Symmetrical Chest Expansion and Respiratory Effort, Clear to Auscultation Cardiovascular: NL Sounds; No Murmurs; No JVD, RRR, No Edema Abdominal: NL Sounds; No Tenderness; No Distention Extremities: No Clubbing, Cyanosis Skin: No Rash or Ulcers, No Nodules or Sclerosis Neurological: Alert and Oriented x 3 Result Diagrams: 08/17/16 18:40 08/18/16 07:58 Additional Lab and Data: Lab Results 08/17/16 08/17/16 08/17/16 Range/Units 18:40 18:40 18:40 WBC 8.2 (3.5-10.8) 10^3/ul RBC 4.62 (4.0-5.4) 10^6/ul Hgb 14.5 (12.0-16.0) g/dl Hct 43 (35-47) % MCV 93 (80-97) fL MCH 32 H (27-31) pg MCHC 34 (31-36) g/dl RDW 14 (10.5-15) % Plt Count 175 (150-450) 10^3/ul MPV 10 (7.4-10.4) um3 Neut % (Auto) 59.3 (38-83) % Lymph % (Auto) 29.3 (25-47) % [place] % (Auto) 7.2 (1-9) % Eos % (Auto) 3.3 (0-6) % Baso % (Auto) 0.9 (0-2) % Absolute Neuts (auto) 4.9 (1.5-7.7) 10^3/ul Absolute Lymphs (auto) 2.4 (1.0-4.8) 10^3/ul Absolute Monos (auto) 0.6 (0-0.8) 10^3/ul Absolute Eos (auto) 0.3 (0-0.6) 10^3/ul Absolute Basos (auto) 0.1 (0-0.2) 10^3/ul Absolute Nucleated RBC 0 10^3/ul Nucleated RBC % 0 D-Dimer, Quantitative (Less Than 230) ng/mL Sodium 140 (133-145) mmol/L Potassium 3.8 (3.5-5.0) mmol/L Chloride 106 (101-111) mmol/L Carbon Dioxide 28 (22-32) mmol/L Anion Gap 6 (2-11) mmol/L BUN 13 (6-24) mg/dL Creatinine 0.82 (0.51-0.95) mg/dL Est GFR ( Amer) 88.6 (>60) Est GFR (Non-Af Amer) 68.9 (>60) BUN/Creatinine Ratio 15.9 (8-20) Glucose 91 (70-100) mg/dL Lactic Acid 1.1 (0.5-2.0) mmol/L Calcium 9.8 (8.6-10.3) mg/dL Magnesium 1.9 (1.9-2.7) mg/dL Total Bilirubin 0.60 (0.2-1.0) mg/dL AST 24 (13-39) U/L ALT 17 (7-52) U/L Alkaline Phosphatase 66 (34-104) U/L Troponin I 0.05 H* (<0.04) ng/mL Total Protein 6.6 (6.4-8.9) g/dL Albumin 3.8 (3.2-5.2) g/dL Globulin 2.8 (2-4) g/dL Albumin/Globulin Ratio 1.4 (1-3) TSH Pending 08/17/16 Range/Units 18:40 WBC (3.5-10.8) 10^3/ul RBC (4.0-5.4) 10^6/ul Hgb (12.0-16.0) g/dl Hct (35-47) % MCV (80-97) fL MCH (27-31) pg MCHC (31-36) g/dl RDW (10.5-15) % Plt Count (150-450) 10^3/ul MPV (7.4-10.4) um3 Neut % (Auto) (38-83) % Lymph % (Auto) (25-47) % [place] % (Auto) (1-9) % Eos % (Auto) (0-6) % Baso % (Auto) (0-2) % Absolute Neuts (auto) (1.5-7.7) 10^3/ul Absolute Lymphs (auto) (1.0-4.8) 10^3/ul Absolute Monos (auto) (0-0.8) 10^3/ul Absolute Eos (auto) (0-0.6) 10^3/ul Absolute Basos (auto) (0-0.2) 10^3/ul Absolute Nucleated RBC 10^3/ul Nucleated RBC % D-Dimer, Quantitative < 200 (Less Than 230) ng/mL Sodium (133-145) mmol/L Potassium (3.5-5.0) mmol/L Chloride (101-111) mmol/L Carbon Dioxide (22-32) mmol/L Anion Gap (2-11) mmol/L BUN (6-24) mg/dL Creatinine (0.51-0.95) mg/dL Est GFR ( Amer) (>60) Est GFR (Non-Af Amer) (>60) BUN/Creatinine Ratio (8-20) Glucose (70-100) mg/dL Lactic Acid (0.5-2.0) mmol/L Calcium (8.6-10.3) mg/dL Magnesium (1.9-2.7) mg/dL Total Bilirubin (0.2-1.0) mg/dL AST (13-39) U/L ALT (7-52) U/L Alkaline Phosphatase (34-104) U/L Troponin I (<0.04) ng/mL Total Protein (6.4-8.9) g/dL Albumin (3.2-5.2) g/dL Globulin (2-4) g/dL Albumin/Globulin Ratio (1-3) TSH Assess/Plan/Problems-Billing Ms Mcguire is a 71 yo F who has a h/o a recent syncopal episode where no clear cause was identified, HLD and hypothyroidism who presented to the ER with c/o lightheadedness and was found to be in rapid afib. - Patient Problems (1) Atrial fibrillation with RVR Current Visit: Yes Status: Acute Code(s): I48.91 - UNSPECIFIED ATRIAL FIBRILLATION SNOMED Code(s): 682039892084336 Comment: Pt remains in NSR-now with LBBB. Continue metoprolol 12.5mg BID and eliquis 5mg BID. Stress test negative for ischemia. She is ready for d/c home today. She will follow up with Dr. Mcqueen in 1-2 weeks. (2) Hypothyroid Current Visit: Yes Status: Acute Code(s): E03.9 - HYPOTHYROIDISM, UNSPECIFIED SNOMED Code(s): 99282810 Comment: TSH in the appropriate range. Continue current dose of synthroid. (3) HLD (hyperlipidemia) Current Visit: Yes Status: Acute Code(s): E78.5 - HYPERLIPIDEMIA, UNSPECIFIED SNOMED Code(s): 73096820 Comment: Continue lipitor (4) DVT prophylaxis Current Visit: Yes Status: Acute Code(s): GIQ4994 - SNOMED Code(s): 402559469 Comment: [place] (5) Full code status Current Visit: Yes Status: Acute Code(s): Z78.9 - OTHER SPECIFIED HEALTH STATUS SNOMED Code(s): 102627707 Status and Disposition: d/c home
--- NOTE | 2016-08-20 12:01 | DS ---
DISCHARGE SUMMARY: DATE OF ADMISSION: 08/17/16 DATE OF DISCHARGE: 08/19/16 PRIMARY CARE PROVIDER: Barron Jimenez MD TALENT SOURCER: Stan Mcqueen DO PRINCIPAL DIAGNOSIS: Atrial fibrillation with rapid ventricular response. SECONDARY DIAGNOSES: 1. Hyperlipidemia. 2. Hypothyroidism. DISCHARGE MEDICATIONS: 1. Calcium plus D, 2 chews p.o. daily. 2. Lipitor 10 mg p.o. daily. 3. Synthroid 75 mcg p.o. daily. 4. Multivitamin 1 tablet p.o. daily. 5. Nasonex 2 squirts both nostrils twice daily. 6. Metoprolol tartrate 12.5 mg p.o. twice daily (new). 7. Eliquis 5 mg p.o. twice daily (new). HOSPITAL COURSE: Ms. Mcguire is a 71-year-old female who presented to the emergency room on 08/17/16 with complaints of lightheadedness and palpitations. The patient had a prior episode of this when she was out of town at which time , she had a syncopal episode. She was admitted to our hospital, where this occurred, where nothing was clearly identified. She followed up with Dr. Mcqueen , who discontinued her propranolol and she was set up to have an event monitor. The patient, however, then developed the lightheadedness and palpitations on the day of presentation. The patient was identified to be with a rapid heart rate in the 140s at home. She presented to the emergency room, where she was found to be in rapid atrial fibrillation. The patient underwent a transthoracic echocardiogram on 08/18/16. This revealed an EF of 45% to 50%, visually closer to 50%. There is no evidence of clinically significant diastolic dysfunction. There was mild global hypokinesis of the left ventricle observed. The patient had spontaneously converted back to normal sinus rhythm after being started on diltiazem drip the day prior. She has been off the diltiazem drip since converting to sinus rhythm. Given the mildly elevated troponin seen on admission, which was felt to be related to command ischemia and the slightly reduced EF and global hypokinesis of the left ventricle, the patient underwent a chemical nuclear stress test on 08/19/16. This did not reveal any evidence of infarct or ischemia. The patient has remained in normal sinus rhythm. I started the patient on Metoprolol Tartrate 12.5 mg p.o. twice daily. She has tolerated this with her heart rates ranging in the 60s to 80s range. Additionally, she was started on Eliquis 5 mg twice daily due to having a CHADS-VASc score of 2. The patient will follow up with Dr. Mcqueen in the next 1 to 2 weeks. FOLLOWUP CONCERNS: The patient is being discharged home today, 08/19/16. She is to follow up with Dr. Jimenez on 09/10/16 at 9:10 a.m. ACTIVITY LEVEL: As tolerated. DIET: Regular. CONDITION ON DISCHARGE: Stable. TIME SPENT: Thirty-five minutes was spent discharging this patient. CC: Dr. Jimenez; Dr. Mcqueen* [id number]/[facility] #: [id number] MTDD
== END 2016-08-19 13:05 | disposition home or self-care (01) | DRG 310 ==
LOC: ED 17:04 → MEDTELE 18:58 → OBSVTOIN 08-18 12:57
PROVIDERS: ADMIT Internal Medicine; ATTEND Hospitalist
DX: I48.91 Unspecified atrial fibrillation (principal); I44.7 Left bundle-branch block, unspecified; E03.9 Hypothyroidism, unspecified; E78.5 Hyperlipidemia, unspecified; R79.89 Other specified abnormal findings of blood chemistry; G43.909 Migraine, unspecified, not intractable, without status migrainosus; Z88.5 Allergy status to narcotic agent; Z88.8 Allergy status to other drugs, medicaments and biological substances; Z88.2 Allergy status to sulfonamides; Z88.1 Allergy status to other antibiotic agents; Z83.3 Family history of diabetes mellitus; Z82.49 Family history of ischemic heart disease and other diseases of the circulatory system; Z82.0 Family history of epilepsy and other diseases of the nervous system; Z79.01 Long term (current) use of anticoagulants
CPT/HCPCS: 36415; 71010; 78452; 80048; 80053; 81003; 83605; 83735; 84443; 84484; 85025; 85379; 85730; 93005; 93017; 93306; 94760; A9270-GY; A9502; G0378; J0280; J1644; J2785

== ENCOUNTER 2017-11-17 09:47 | Emergency (ER) | payer MEDICARE ==
[2017-11-17 09:56] VITALS: BP 140/87
--- NOTE | 2017-11-17 10:35 | UC ---
Lower Extremity/Ankle HPI - HPI Summary HPI Summary: Right lower leg pain began 5 days ago. No prolonged sitting no history of clotting disorder no recent travel. Pain is bothersome with certain standing activities but otherwise she is pain-free. Has history of sciatica on the right side but never has had pain that extends into her right calf. No swelling redness cord, streaking,or open areas - History of Current Complaint Chief Complaint: UCLowerExtremity Stated Complaint: LEG PAIN Time Seen by Provider: 11/17/17 10:25 Hx Obtained From: Patient ?: No Onset/Duration: Gradual Onset Pain Intensity: 7 Pain Scale Used: 0-10 Numeric Aggravating Factor(s): Standing, Ambulation Alleviating Factor(s): Rest Able to Bear Weight: Yes - Allergies/Home Medications Allergies/Adverse Reactions: Allergies Allergy/AdvReac Type Severity Reaction Status Date / Time codeine Allergy Rash Verified 11/17/17 10:00 metoprolol Allergy Rash Verified 11/17/17 10:01 neomycin Allergy Rash Verified 11/17/17 10:01 Sulfa (Sulfonamide Allergy Rash Verified 11/17/17 10:01 Antibiotics) Home Medications: Home Medications Dronedarone HCl [Multaq] 400 mg PO DAILY 11/17/17 [History Confirmed 11/17/17] PMH/Surg Hx/FS Hx/Imm Hx Previously Healthy: No Endocrine History: Hypothyroidism, Dyslipidemia Cardiovascular History: Hypertension, Atrial Fibrillation - Surgical History Surgical History: Yes Surgery Procedure, Year, and Place: Appendectomy. Tonsilectomy. Oral Surgery age 36. 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 - Family History Known Family History: Positive: Diabetes - Social History Occupation: Retired Lives: With Family Alcohol Use: Rare Alcohol Amount: 1-2glasses Substance Use Type: None Smoking Status (MU): Never Smoked Tobacco - Immunization History Most Recent Influenza Vaccination: unk Most Recent Pneumonia Vaccination: 2016 Review of Systems Constitutional: Negative Skin: Negative Eyes: Negative ENT: Negative Respiratory: Negative Cardiovascular: Negative Gastrointestinal: Negative Genitourinary: Negative Motor: Negative Neurovascular: Negative Musculoskeletal: Arthralgia Neurological: Negative Psychological: Negative Is Patient Immunocompromised?: No All Other Systems Reviewed And Are Negative: Yes Physical Exam Triage Information Reviewed: Yes Appearance: Well-Appearing, No Pain Distress, Well-Nourished Vital Signs: Initial Vital Signs Temp 98 F 11/17/17 09:53 Pulse 73 07/11/18 09:53 Resp 15 11/17/17 09:53 BP 140/87 11/17/17 09:53 Pulse Ox 100 11/17/17 09:53 Vital Signs Reviewed: Yes Eye Exam: Normal Eyes: Positive: Conjunctiva Clear ENT Exam: Normal ENT: Positive: Normal ENT inspection, Hearing grossly normal. Negative: Trismus , Muffled voice, Hoarse voice, Sinus tenderness Neck exam: Normal Neck: Positive: Supple, Nontender Respiratory Exam: Normal Respiratory: Positive: Chest non-tender, Normal breath sounds, No respiratory distress, No accessory muscle use Cardiovascular Exam: Normal Cardiovascular: Positive: RRR, Pulses Normal, Brisk Capillary Refill Musculoskeletal Exam: Normal Musculoskeletal: Positive: Strength Intact, ROM Intact, No Edema Neurological Exam: Normal Neurological: Positive: Alert, Muscle Tone Normal Psychological Exam: Normal Skin Exam: Normal Diagnostics - Radiology No standard instances Xray Interpretation: No Acute Changes Radiology Interpretation Completed By: ED Physician - Patient Name: RENY SAHNI Medical Record#: [id number] Ordering Physician: Joleen Castro NP Acct.#: [id number] : 1945 Age: 72 Sex: F Location: [facility] Exam Date: 11/17/17 1035 ADM Status: REG ER Order Information: LOWER LEG RIGHT Accession Number: [id number] CPT: 73090 Indication: Right leg pain. 2 views of the right lower leg demonstrates no fracture. No other bone or joint abnormality is noted. IMPRESSION: No fracture of the right lower leg is noted. <Electronically signed by Kalee Nina MD in [place]> 11/17/171107 Dictated By: Kalee Nina MD Dictated Date/Time: 11/17/171107 Transcribed Date/Time: 11/17/171107 Copy to: CC:Joleen Castro NP; Barron Jimenez III, MD; Daniel Kat MD Imaging - [facility] Imaging [facility]gent [facility] [address] [address] ph ([phone]) ph ([phone] ) ([phone]) This report is only to be considered final once signed by the Provider(s) as displayed in the "<Electronically Signed by >" field (s). Absence of a signature indicates the report is in a draft status and still needs to be finalized. In the event this document was created by someone other than the signing Provider, the individual initiating the document will be listed in the "Entered by:" or "Dictated by:" crocker. 1 of 1, Radiologist - Patient Name: RENY SAHNI Medical Record#: [id number] Ordering Physician: Joleen Castro NP Acct.#: [id number] : 1945 Age: 72 Sex: F Location: [facility] Exam Date: 11/17/171123 ADM Status: REG ER Order Information: VL LOWER EXT VEINS RIGHT Accession Number: [id number] CPT: 95608 HISTORY: calf pain COMPARISONS: None relevant TECHNIQUE: Multiple transverse and longitudinal ultrasound images were obtained of the right lower extremity from the level of the common femoral vein inferiorly through to the infrapopliteal veins using grayscale, color Doppler, and spectral Doppler imaging with and without compression and with augmentation. Comparison images were obtained of the contralateral common femoral vein. FINDINGS: VEINS: The venous system of the right lower extremity is compressible throughout its course, with normal flow on color Doppler imaging and normal response to augmentation on spectral Doppler imaging. SOFT TISSUES: Unremarkable. OTHER FINDINGS: None. IMPRESSION: NO RIGHT LOWER EXTREMITY DEEP VEIN THROMBOSIS <Electronically signed by Chester Moore MD in [place]> 11/17/17 1254 Dictated By: Chester Moore MD Dictated Date/Time: 11/17/17 1254 Transcribed Date/Time: 11/17/17 1252 Copy to: CC:Joleen Castro NP; Barron Jimenez III, MD; Daniel Kat MD Imaging - [facility] Imaging - [facility] Imaging - [facility] [address] [address] ph ) ph ([phone]) ph ([phone]) This report is only to be considered final once signed by the Provider(s) as displayed in the "< Electronically Signed by >" field (s). Absence of a signature indicates the report is in a draft status and still needs to be finalized. In the event this document was created by someone other than the signing Provider, the individual initiating the document will be listed in the "Entered by:" or "Dictated by:" crocker. 1 of 1 Lower Extremity Course/Dx - Course Course Of Treatment: continue tylenol, zenon wrap, follow with pcp - Differential Dx/Diagnosis Provider Diagnoses: elevated blood pressure in poor control, right lower leg pain Discharge - Sign-Out/Discharge Documenting (check all that apply): Patient Departure - Discharge Plan Condition: Stable Disposition: HOME Patient Education Materials: Hypertension (ED), Leg Pain (ED) Referrals: Barron Jimenez MD [Primary Care Provider] - 1 Week - Billing Disposition and Condition Condition: STABLE Disposition: Home
--- NOTE | 2017-11-17 11:12 | RAD ---
Indication: Right leg pain. 2 views of the right lower leg demonstrates no fracture. No other bone or joint abnormality is noted. IMPRESSION: No fracture of the right lower leg is noted.
--- NOTE | 2017-11-17 12:57 | RAD ---
HISTORY: calf pain COMPARISONS: None relevant TECHNIQUE: Multiple transverse and longitudinal ultrasound images were obtained of the right lower extremity from the level of the common femoral vein inferiorly through to the infrapopliteal veins using grayscale, color Doppler, and spectral Doppler imaging with and without compression and with augmentation. Comparison images were obtained of the contralateral common femoral vein. FINDINGS: VEINS: The venous system of the right lower extremity is compressible throughout its course, with normal flow on color Doppler imaging and normal response to augmentation on spectral Doppler imaging. SOFT TISSUES: Unremarkable. OTHER FINDINGS: None. IMPRESSION: NO RIGHT LOWER EXTREMITY DEEP VEIN THROMBOSIS
== END 2017-11-17 12:53 | disposition home or self-care (01) ==
LOC: UCEAST 09:47
DX: M79.661 Pain in right lower leg (principal); I10 Essential (primary) hypertension; I48.91 Unspecified atrial fibrillation; Z88.5 Allergy status to narcotic agent; Z88.8 Allergy status to other drugs, medicaments and biological substances; Z88.1 Allergy status to other antibiotic agents; Z88.2 Allergy status to sulfonamides; Z79.899 Other long term (current) drug therapy
CPT/HCPCS: 99212; G0463